=== PATIENT | male | born 1990 | race Caucasian/White ===

== ENCOUNTER → 2018-10-04 | Outpatient (CLI) | payer OTHER ==
[2018-10-04 15:53] LABS: EOS # 0.3 (0.04-0.40); EOS % 4.7 % (0.0-4.0); HEMATOCRIT 42.8 % (42.0-52.0); HEMOGLOBIN 14.7 g/dL (13.5-18.0); LYMPH# 1.8 (1.50-4.00); MEAN CELL VOLUME 90 fl (78-100); MEAN CORPUSCULAR HEMOGLOBIN 31 pg (27-31); MEAN CORPUSCULAR HGB CONC 34 g/dL (33-37); MEAN PLATELET VOLUME 9.7 fl (7.4-10.4); MONO # 0.6 (0.20-0.80); NEU # 2.7 (1.40-6.50); PLATELET COUNT 227 K/mm3 (130-400); RED BLOOD COUNT 4.76 M/mm3 (4.20-5.60); RED CELL DISTRIBUTION WIDTH 12.6 % (11.5-14.5); WHITE BLOOD COUNT 5.4 K/mm3 (4.8-10.8)
[2018-10-04 16:00] LABS: ALBUMIN 4.6 g/dL (3.5-5.0); CALCIUM 9.3 mg/dL (8.4-10.2); POTASSIUM 4.1 mmol/L (3.6-5.0); TOTAL BILIRUBIN 0.4 mg/dL (0.2-1.3); TOTAL PROTEIN 7.4 g/dL (6.3-8.2)
== END ==
LOC: LAB 15:31
PROVIDERS: Physician Assistant
DX: Z72.820 Sleep deprivation (principal); R06.9 Unspecified abnormalities of breathing; R06.83 Snoring; J30.2 Other seasonal allergic rhinitis; Z83.49 Family history of other endocrine, nutritional and metabolic diseases; Z83.3 Family history of diabetes mellitus

== ENCOUNTER → 2019-01-02 | Outpatient (CLI) | payer OTHER ==
[2019-01-02 16:05] LABS: ALBUMIN 4.1 g/dL (3.5-5.0); DIRECT BILIRUBIN 0.2 mg/dL (0.0-0.5); POTASSIUM 3.8 mmol/L (3.5-5.1); TOTAL BILIRUBIN 0.4 mg/dL (0.2-1.2); TOTAL PROTEIN 6.6 g/dL (6.4-8.3)
[2019-01-02 16:30] LABS: HEMATOCRIT 45.7 % (42.0-52.0); HEMOGLOBIN 14.5 g/dL (13.5-18.0); RED BLOOD COUNT 4.87 M/mm3 (4.20-5.60); RED CELL DISTRIBUTION WIDTH 13.4 % (11.5-14.5); WHITE BLOOD COUNT 5.4 K/mm3 (4.8-10.8)
[2019-01-02 16:36] LABS: CALCIUM 9.3 mg/dL (8.4-10.2)
== END ==
LOC: LAB 14:58
PROVIDERS: Urology
DX: E29.1 Testicular hypofunction (principal); I86.1 Scrotal varices

== ENCOUNTER → 2019-01-08 | Outpatient (CLI) | payer OTHER | LOC: RAD 09:07 | DX: I86.1 Scrotal varices (principal); E29.1 Testicular hypofunction | CPT/HCPCS: Q9967 ==

== ENCOUNTER → 2019-03-27 | Outpatient (CLI) | payer OTHER ==
[2019-03-27 16:56] LABS: ALBUMIN 4.4 g/dL (3.5-5.0)
[2019-03-27 16:59] LABS: TOTAL PROTEIN 7.9 g/dL (6.4-8.3)
[2019-03-27 17:01] LABS: TOTAL BILIRUBIN 0.4 mg/dL (0.2-1.2)
[2019-03-27 17:05] LABS: DIRECT BILIRUBIN 0.2 mg/dL (0.0-0.5)
== END ==
LOC: LAB 16:24
DX: B35.1 Tinea unguium (principal)

== ENCOUNTER → 2019-06-13 | Outpatient (CLI) | payer OTHER ==
[2019-06-13 13:53] LABS: EOS # 0.2 (0.04-0.40); EOS % 4.6 % (0.0-4.0); HEMATOCRIT 45.1 % (42.0-52.0); HEMOGLOBIN 15.3 g/dL (13.5-18.0); LYMPH# 1.5 (1.50-4.00); MEAN CELL VOLUME 90 fl (78-100); MEAN CORPUSCULAR HEMOGLOBIN 30 pg (27-31); MEAN CORPUSCULAR HGB CONC 34 g/dL (33-37); MEAN PLATELET VOLUME 9.5 fl (7.4-10.4); MONO # 0.4 (0.20-0.80); NEU # 2.4 (1.40-6.50); PLATELET COUNT 215 K/mm3 (130-400); RED BLOOD COUNT 5.04 M/mm3 (4.20-5.60); RED CELL DISTRIBUTION WIDTH 14.5 % (11.5-14.5); WHITE BLOOD COUNT 4.6 K/mm3 (4.8-10.8)
[2019-06-13 14:08] LABS: ALBUMIN 4.6 g/dL (3.5-5.0); POTASSIUM 3.6 mmol/L (3.5-5.1)
[2019-06-13 14:09] LABS: CALCIUM 9.3 mg/dL (8.3-10.5)
[2019-06-13 14:10] LABS: TOTAL PROTEIN 7.5 g/dL (6.4-8.3)
[2019-06-13 14:12] LABS: TOTAL BILIRUBIN 0.7 mg/dL (0.2-1.2)
[2019-06-13 22:35] LABS: TESTOSTERONE 315 ng/dL (240-871)
== END ==
LOC: LAB 13:33
PROVIDERS: Physician Assistant
DX: Z12.5 Encounter for screening for malignant neoplasm of prostate (principal); Z13.220 Encounter for screening for lipoid disorders; Z91.89 Other specified personal risk factors, not elsewhere classified; Z92.241 Personal history of systemic steroid therapy; Z86.19 Personal history of other infectious and parasitic diseases; G47.00 Insomnia, unspecified; R06.83 Snoring

== ENCOUNTER → 2021-02-16 | Outpatient (CLI) | payer OTHER ==
[2021-02-16 08:48] LABS: BASO # 0.02 (0.02-0.10); EOS # 0.12 (0.04-0.40); EOS % 3.1 % (0.0-4.0); HEMATOCRIT 47.5 % (42.0-52.0); HEMOGLOBIN 16.4 g/dL (13.5-18.0); LYMPH# 1.41 (1.50-4.00); MEAN CELL VOLUME 90 fl (78-100); MEAN CORPUSCULAR HEMOGLOBIN 31 pg (27-31); MEAN CORPUSCULAR HGB CONC 35 g/dL (33-37); MEAN PLATELET VOLUME 9.8 fl (7.4-10.4); NEU # 1.94 (1.40-6.50); PLATELET COUNT 213 K/mm3 (130-400); RED BLOOD COUNT 5.29 M/mm3 (4.20-5.60); RED CELL DISTRIBUTION WIDTH 12.5 % (11.5-14.5); WHITE BLOOD COUNT 3.9 K/mm3 (4.8-10.8)
[2021-02-16 08:50] LABS: POTASSIUM 4.2 mmol/L (3.5-5.1)
[2021-02-16 08:51] LABS: ALBUMIN 4.6 g/dL (3.5-5.0)
[2021-02-16 08:52] LABS: CALCIUM 9.3 mg/dL (8.3-10.5)
[2021-02-16 08:53] LABS: TOTAL PROTEIN 7.8 g/dL (6.4-8.3)
[2021-02-16 08:55] LABS: TOTAL BILIRUBIN 0.7 mg/dL (0.2-1.2)
[2021-02-16 23:07] LABS: TESTOSTERONE 414 ng/dL (240-871)
[2021-02-17 13:46] LABS: ANA SCREEN with REFLEX Negative (Negative)
[2021-02-21 14:57] LABS: ESTRONE (E1) LEVEL 31 pg/mL (10-60)
== END ==
LOC: LAB 08:24
PROVIDERS: Physician Assistant
DX: Z00.00 Encounter for general adult medical examination without abnormal findings (principal); L65.9 Nonscarring hair loss, unspecified; Z72.89 Other problems related to lifestyle; Z83.49 Family history of other endocrine, nutritional and metabolic diseases; Z83.2 Family history of diseases of the blood and blood-forming organs and certain disorders involving the immune mechanism

== ENCOUNTER → 2023-07-25 | Outpatient (CLI) | payer OTHER ==
[2023-07-25 16:30] LABS: BASO # 0.04 K/mm3 (0.02-0.10); EOS # 0.24 K/mm3 (0.04-0.40); EOS % 4.2 % (0.0-4.0); HEMATOCRIT 45.5 % (42.0-52.0); HEMOGLOBIN 15.4 g/dL (13.5-18.0); LYMPH# 2.12 K/mm3 (1.50-4.00); MEAN CELL VOLUME 93 fl (78-100); MEAN CORPUSCULAR HEMOGLOBIN 32 pg (27-31); MEAN CORPUSCULAR HGB CONC 34 g/dL (33-37); MEAN PLATELET VOLUME 9.6 fl (7.4-10.4); MONO # 0.58 K/mm3 (0.20-0.80); NEU # 2.79 K/mm3 (1.40-6.50); PLATELET COUNT 197 K/mm3 (130-400); RED BLOOD COUNT 4.87 M/mm3 (4.20-5.60); RED CELL DISTRIBUTION WIDTH 12.3 % (11.5-14.5); WHITE BLOOD COUNT 5.8 K/mm3 (4.8-10.8)
[2023-07-25 16:36] LABS: ALBUMIN 4.6 g/dL (3.5-5.0)
[2023-07-25 16:37] LABS: CALCIUM 9.6 mg/dL (8.3-10.5)
[2023-07-25 16:39] LABS: TOTAL PROTEIN 7.2 g/dL (6.4-8.3)
[2023-07-25 16:40] LABS: TOTAL BILIRUBIN 0.6 mg/dL (0.2-1.2)
[2023-07-26 17:42] LABS: TESTOSTERONE 253 ng/dL (240-871)
[2023-07-27 13:21] LABS: ANA SCREEN with REFLEX Negative (Negative)
== END ==
LOC: LAB 16:14
PROVIDERS: Physician Assistant
DX: Z00.00 Encounter for general adult medical examination without abnormal findings (principal); E78.5 Hyperlipidemia, unspecified; L65.9 Nonscarring hair loss, unspecified; K90.9 Intestinal malabsorption, unspecified; Z83.2 Family history of diseases of the blood and blood-forming organs and certain disorders involving the immune mechanism; Z83.49 Family history of other endocrine, nutritional and metabolic diseases; Z72.89 Other problems related to lifestyle

== ENCOUNTER → 2023-10-23 | Outpatient (CLI) | payer OTHER ==
[2023-10-23 08:59] LABS: BASO # 0.02 K/mm3 (0.02-0.10); EOS # 0.12 K/mm3 (0.04-0.40); EOS % 2.8 % (0.0-4.0); HEMATOCRIT 50.1 % (42.0-52.0); HEMOGLOBIN 16.9 g/dL (13.5-18.0); LYMPH# 1.15 K/mm3 (1.50-4.00); MEAN CELL VOLUME 93 fl (78-100); MEAN CORPUSCULAR HEMOGLOBIN 31 pg (27-31); MEAN CORPUSCULAR HGB CONC 34 g/dL (33-37); MEAN PLATELET VOLUME 9.7 fl (7.4-10.4); MONO # 0.47 K/mm3 (0.20-0.80); NEU # 2.55 K/mm3 (1.40-6.50); PLATELET COUNT 231 K/mm3 (130-400); RED CELL DISTRIBUTION WIDTH 12.8 % (11.5-14.5); WHITE BLOOD COUNT 4.3 K/mm3 (4.8-10.8)
[2023-10-23 09:07] LABS: ALBUMIN 4.4 g/dL (3.5-5.0)
[2023-10-23 09:08] LABS: CALCIUM 9.5 mg/dL (8.3-10.5)
[2023-10-23 09:31] LABS: TOTAL BILIRUBIN 0.6 mg/dL (0.2-1.2); TOTAL PROTEIN 7.2 g/dL (6.4-8.3)
[2023-10-24 00:01] LABS: TESTOSTERONE >1500 ng/dL (240-871)
== END ==
LOC: LAB 08:42
PROVIDERS: Physician Assistant
DX: E29.1 Testicular hypofunction (principal); K90.9 Intestinal malabsorption, unspecified